=== PATIENT | female | born 1965 | race Caucasian/White ===

== ENCOUNTER 2018-10-26 23:16 | Inpatient (IN) | payer OTHER ==
[~2018-10-26] VITALS: Ht 157.5 cm; Wt 62.1 kg
[2018-10-26 23:21] VITALS: Ht 157.5 cm; Wt 62.1 kg
[2018-10-26 23:58] LABS: BASOPHIL % 0.3 % (0-2); PLATELET COUNT 272 x10^3mcL (130-400); RED CELL DISTRIBUTION WIDTH 13.8 % (11.5-14.5)
[2018-10-27 00:37] LABS: CHLORIDE SERUM 104 mmol/L (98-107); CREATININE SERUM 0.8 mg/dL (0.6-1.0); GFR1 > 60 mL/min; GLUCOSE SERUM 90 mg/dL (74-106); POTASSIUM SERUM 3.7 mmol/L (3.5-5.1); SODIUM SERUM 142 mmol/L (136-145)
[2018-10-27 00:42] LABS: ALBUMIN 3.7 g/dL (3.4-5.0); ALKALINE PHOSPHATASE 46 U/L (46-116); ALT/SGPT 20 U/L (14-59); AST/SGOT 22 U/L (15-37); BILIRUBIN TOTAL 0.3 mg/dL (0.20-1.00); TOTAL PROTEIN, SERUM 7.2 g/dL (6.4-8.2)
[2018-10-27 01:20] LABS: AMPHETAMINE QUAL UR NONE DETECTED (See below)
[2018-10-27 04:09] LABS: MAGNESIUM 2.3 mg/dL (1.8-2.4); PHOSPHOROUS 3.3 mg/dL (2.5-4.9)
[2018-10-27 04:18] LABS: UA SPECIFIC GRAVITY <=1.005 (1.005-1.035); microscopic required? YES; urine erythrocyte TRACE (NEGATIVE)
[2018-10-27 04:19] LABS: CHOLESTEROL/HDL RATIO 2.4; T3 TOTAL 0.86 ng/mL
[2018-10-27] MEDS ORDERED: ROBAXIN500 MG (07:27)
[2018-10-27] MEDS ORDERED: PREDNISONE5 MG PO (07:27)
[2018-10-27] MEDS ORDERED: PLAQUENIL200 MG PO (07:27)
[2018-10-27 08:06] LABS: FREE T4 0.71 ng/dL (0.76-1.46); T4(THYROXINE) 6.5 ug/dL (4.7-13.3)
[2018-10-27 08:14] VITALS: BP 121/65
[2018-10-27 13:29] VITALS: BP 113/52
[2018-10-27 16:37] VITALS: BP 117/62
[2018-10-27 20:43] VITALS: BP 107/54
[2018-10-28 05:32] VITALS: BP 112/62
[2018-10-28 06:53] LABS: CALCIUM 8.4 mg/dL (8.5-10.1); CARBON DIOXIDE 27.7 mmol/L (21-32); CHLORIDE SERUM 109 mmol/L (98-107); CREATININE SERUM 0.6 mg/dL (0.6-1.0); GFR1 > 60 mL/min; GLUCOSE SERUM 80 mg/dL (74-106); MAGNESIUM 2.2 mg/dL (1.8-2.4); PHOSPHOROUS 3.4 mg/dL (2.5-4.9); SODIUM SERUM 144 mmol/L (136-145)
[2018-10-28 07:27] LABS: BASOPHIL % 0.6 % (0-2); PLATELET COUNT 249 x10^3mcL (130-400); RED CELL DISTRIBUTION WIDTH 13.8 % (11.5-14.5)
[2018-10-28 08:52] VITALS: BP 104/48
[2018-10-28 11:22] VITALS: BP 104/48
== END 2018-10-28 12:15 | disposition home or self-care (01) | DRG 206 ==
LOC: ED 23:16 → DU 10-27 03:30
PROVIDERS: Emergency Medicine; Family Medicine; General Practice
DX: M94.0 Chondrocostal junction syndrome [Tietze] (principal); M62.82 Rhabdomyolysis; M06.9 Rheumatoid arthritis, unspecified; Z82.61 Family history of arthritis
CPT/HCPCS: 83880; 84439; J1885; J7030; J7512; Q0092